=== PATIENT | female | born 1980 | race Two or more races ===

== ENCOUNTER → 2020-06-25 | Outpatient (CLI) | payer OTHER | END | disposition home or self-care (01) | LOC: PRENATAL 11:00 | PROVIDERS: ATTEND Obstetrics & Gynecology Maternal & Fetal Medicine | DX: O35.0XX1 Maternal care for (suspected) central nervous system malformation in fetus, fetus 1 (principal); O35.3XX1 Maternal care for (suspected) damage to fetus from viral disease in mother, fetus 1; O98.512 Other viral diseases complicating pregnancy, second trimester; O09.512 Supervision of elderly primigravida, second trimester; Z36.89 Encounter for other specified antenatal screening; Z3A.22 22 weeks gestation of pregnancy ==

== ENCOUNTER 2020-10-01 17:32 | Emergency (ER) | payer OTHER ==
[~2020-10-01] VITALS: Ht 167.6 cm; Wt 59.0 kg
[2020-10-01] MEDS ORDERED: LOSARTAN POTASS50 MG PO (22:50)
[2020-10-01] MEDS ORDERED: NITROFURANTOIN100 MG PO (22:50)
== END 2020-10-01 23:23 | disposition home or self-care (01) ==
LOC: ER 17:32
DX: I16.0 Hypertensive urgency (principal); I10 Essential (primary) hypertension